=== PATIENT | female | born 1970 | race Caucasian/White ===

== ENCOUNTER → 2020-11-02 13:48 | Outpatient (CLI) | payer MEDICARE, MEDICAID, SELFPAY ==
[2020-11-02] MEDS: COVID-19 VACC, Ad26(JANSSEN)/PF 0.5 ML IM (13:59)
== END ==
PROVIDERS: Family Provider Internal Medicine; PCP Internal Medicine; Visit Provider Internal Medicine
DX: Z23 Encounter for immunization (principal)
CPT/HCPCS: 0031A; 91303